=== PATIENT | female | born 1955 ===

== ENCOUNTER 2018-03-16 07:53 | Outpatient (CLI) | payer OTHER ==
[~2018-03-16] VITALS: Ht 152.4 cm; Wt 68.0 kg
== END 2018-03-16 08:15 | disposition home or self-care (01) ==
LOC: OFIC 805 07:53
DX: J31.0 Chronic rhinitis (principal); H90.41 Sensorineural hearing loss, unilateral, right ear, with unrestricted hearing on the contralateral side

== ENCOUNTER 2024-01-03 08:36 | Outpatient (CLI) | payer OTHER | END 2024-01-03 08:44 | disposition home or self-care (01) | LOC: MRI 08:36 | DX: M25.562 Pain in left knee (principal) | CPT/HCPCS: 73721 ==